=== PATIENT | female | born 1975 ===

== ENCOUNTER 2018-03-12 08:21 | Outpatient (CLI) | payer BC ==
--- NOTE | 2018-03-12 13:58 | Ultrasound Report ---
ABDOMINAL ULTRASOUND: 03/12/18 08:21:00 CLINICAL: Nausea. FINDINGS: Ultrasound examination of the abdomen is very limited due to large body habitus. The liver is normal size with normal overall echogenicity. However, portions of the liver are not well imaged due to shadowing from ribs and bowel gas. Normal intrahepatic bile ducts. The gallbladder is normally distended and contains at least 2 calculi measuring 2.5 and 1.6 cm each. The gallbladder wall measures 3.1 mm. The common bile duct is mildly dilated and measures 5.2 mm diameter. The pancreas is not well imaged due to bowel gas and body habitus. Normal abdominal aorta. A normal spleen measures 9.5 cm. Normal kidneys with normal echogenicity and normal non-dilated renal collecting systems and ureters. The right kidney measures 10.3 x 4.9 x 5.7 cm. The left kidney measures 9.9 x 7.1 x 5.9 cm. No renal mass or calculus. No ascites or mass. IMPRESSION: 1. Cholelithiasis but no signs of acute cholecystitis. 2. Mild CBD dilatation but no choledocholithiasis identified. 3. Limited examination of the liver and pancreas due to body habitus and bowel gas.
== END 2018-03-12 08:22 | disposition home or self-care (01) ==
LOC: SPVWC 08:21
PROVIDERS: ATTEND Internal Medicine
DX: K80.20 Calculus of gallbladder without cholecystitis without obstruction (principal); R11.0 Nausea
CPT/HCPCS: 76700